=== PATIENT | female | born 1955 | race Caucasian/White ===

== ENCOUNTER 2016-11-24 11:12 | Emergency (ER) | payer OTHER ==
[~2016-11-24] VITALS: Ht 162.6 cm; Wt 88.6 kg
[2016-11-24 11:12] VITALS: BP 198/79; PULSE 104; RESP 26; O2SAT 97
[~2016-11-24 11:12] MED LIST: ATEN25TA PO; ATOR10TA66 PO; CHOL400C9 PO; FLUO10CA20 PO; HYDR12.5 PO; IBUP200C11 PO; OMEP40CA36 PO; RANI150C4 PO; VITA-219 PO; [UNRECOGNIZED DRUG - CODE] PO
[2016-11-24] MEDS ORDERED: Ondansetron 2 mg/mL 2 mL Inj IVPUSH PRN (11:25)
[2016-11-24] MEDS ORDERED: HYDROmorphone 0.5 mg/0.5 mL iSecure Syringe IVPUSH PRN (11:25)
--- NOTE | 2016-11-24 11:25 | ED.REPORT ---
HPI-Extremity Problem Lower Date of Service Nov 24, 2016 ED Provider: Jt Hester MD A 61 year old female presents to the ED via EMS with right ankle pain secondary to a injury the occurred just prior to arrival. Patient reportedly tripped over her dog's leash and her right foot was inverted at a backward angle. EMS manipulated and rotated the ankle to reduce the fracture. Patient is unable to bear weight and unable to ambulate. She denies any other injuries at this time including any head injuries. She denies any previous injuries to the right foot. Nursing Notes Stated Complaint: RIGHT ANKLE PAIN Chief Complaint: Multiple Trauma/Fall Nursing Notes Reviewed: Yes Allergies: Coded Allergies: No Known Drug Allergies (Verified Allergy, Unknown, 10/17/14) Scheduled Aspirin (Angella Chewable) 81 Mg Tab.chew 81 MG PO DAILY Atenolol (Atenolol) 25 Mg Tablet 25 MG PO DAILY Atorvastatin Calcium (Atorvastatin Calcium) 10 Mg Tablet 10 MG PO DAILY Cholecalciferol (Vitamin D3) (Vitamin D3) 400 Unit Capsule 400 UNIT PO DAILY Fluoxetine (Fluoxetine) 10 Mg Capsule 20 MG PO QAM Hydrochlorothiazide (Hydrochlorothiazide) 12.5 Mg Capsule 12.5 MG PO DAILY Omeprazole (Omeprazole) 40 Mg Capsule.dr 40 MG PO DAILYAC Ranitidine (Ranitidine) 150 Mg Capsule 150 MG PO BID Vitamin B Complex (B Complex) 1 Each Tablet 1 EACH PO DAILY Scheduled PRN Hydrocodone-Acetaminophen 5-325 mg (Hydrocodone-Acetaminophen 5-325 mg) 1 Each Tablet 1 TABLET PO Q4H PRN PRN For Pain Ibuprofen (Advil) 200 Mg Capsule 200 MG PO PRN PRN PRN For Pain General Time Seen by MD: 11:18 Chief Complaint Ankle injury right Hx Obtained From: Patient Arrived By: Ambulance Onset Occurred: Just prior to arrival Symptom Duration: Since onset Caused by: Accidental Location: : Ankle right Quality: Painful Severity: Current: Moderate Severity: Maximum: Moderate Associated with: Reports: Unable to bear weight, Unable to move joint, Unable to walk Pertinent Negative: Pt denies other symptoms Recent Healthcare: No recent doctor visit, No recent hospitalization Past Medical History Past Medical History Hypertension GERD Osteoarthritis Past Surgical History Left knee arthroscopy Smoking History Current Every Day Smoker Social History Other Social History: Good social support, Local resident Ambulatory Status Independent Review of Systems Musculoskeletal: Reports: Extremity pain (R foot), Joint pain (R ankle), Denies: Back pain, Neck pain Neurologic: Denies: Change LOC, Headache Complete sys rev & neg: except as marked. Physical Exam Initial Vital Signs Vital Signs (First) Date Time Temp Pulse Resp B/P Pulse Ox O2 Delivery O2 Flow Rate FiO2 11/24/16 11:12 36.6 104 26 198/79 97 Room Air Initial VS: Reviewed Head / Eyes: Atraumatic, Normocephalic, PERRL Neck: Supple, Non-tender, Full range of motion Skin: Warm, Dry, No cyanosis Neurologic: Alert, Oriented, Nonfocal Psychiatric: Mood/affect normal, Behavior normal, Normal thought content Lower Extremity / Pelvis / MS: Atraumatic, Inspection NL, Neurologic intact, Vascular intact LOWER EXTREMITIES: Good DP and PT pulses Ankle / Foot: Neurologic intact, Vascular intact Right Foot: Positive: Deformity present, ROM reduced, Swelling present..., Tenderness present... Respiratory / Chest: Atraumatic, Breath sounds NL, Breath sounds = bilat, No respiratory distress Cardiovascular: Heart rate NL, Regular rhythm, Heart sounds NL, No murmurs Interpretation & Diagnostics X-Ray Interpretation Xray Interpretation: IMPRESSION: Distal tibial and fibular fractures. Please see right ankle x-ray report for detail. Dictated by: Isidro Harper M.D. on 11/24/2016 at 12:07 X-Ray Ordered: Foot right Interpretation / Wet Read by: Interpret - Radiologist Xray Interpretation: IMPRESSION: 1. Distal fibular fracture above the ankle mortise. 2. Transverse fracture of the medial malleolus. 3. Widening of medial joint space at the tibiotalar joint. Dictated by: Isidro Harper M.D. on 11/24/2016 at 12:04 X-Ray Ordered: Ankle right Interpretation / Wet Read by: Interpret - Radiologist Procedures Splint Application - Fx Mgt Time: 13:28 Procedure Performed by: Supply Tech Definitive Fracture Care: Splint Post-Procedure / Complications: Cap refill normal, Post splint vascular nl, Post splint neuro nl, Condition improved, Tolerated procedure well, Patient stable Splint Post-Application Eval Extremity Condition: Cap refill < 2 sec, Distal sensation intact, Distal motor Intact, No compartment syndrome Re-Eval/Medical Decision Med Decision/Clinical Course 61-year-old female with right tibiotalar dislocation and medial and lateral malleoli fractures. Right lower extremity is neurovascularly intact. Reduced by medics in the field. Alignment is stable here. Discussed with orthopedics recommended splinting and follow-up with orthopedics in several days. Return precautions given if any worse or any neurovascular deficits or any new or worsening pain. She was discharged with crutches. I evaluated the patient is post-splint placement and it was neurovascularly intact. Re-Evaluation/Progress #1: Time of Eval: 12:02 Patient Status: Condition improved Re-Evaluation/Progress Note: Pt is informed of her X-ray results. Splint is placed. All questions about the treatment plan area addressed. She understands and agrees with the plan. Re-Evaluation/Progress #2: Time of Eval: 13:04 Re-Evaluation/Progress Note: Pt reports that the spint is painfully tight. Splint procedure is repeated. Consultation : Referral / Consult Name: Mathew Marcelo MD Consulted With: Orthopedic Call Returned at: 12:27 Shoder Filler: Will see patient, Will see in office, Agrees with eval, Agrees with plan Counseled Regarding: Diagnosis, Need for follow-up, When/why to return to ED Discharge & Departure Impression: Primary Impression: Fracture of distal end of tibia with fibula Encounter type: initial encounter Fracture type: closed Laterality: right Qualified Code: S82.301A - Unspecified fracture of lower end of right tibia, initial encounter for closed fracture Additional Impressions: Medial malleolar fracture Encounter type: initial encounter Fracture type: closed Fracture alignment : displaced Laterality: right Qualified Code: S82.51XA - Displaced fracture of medial malleolus of right tibia, initial encounter for closed fracture Lateral malleolar fracture Encounter type: initial encounter Fracture type: closed Fracture alignment : displaced Laterality: right Qualified Code: S82.61XA - Displaced fracture of lateral malleolus of right fibula, initial encounter for closed fracture Dislocation of right talus Encounter type: initial encounter Qualified Code: S93.04XA - Dislocation of right ankle joint, initial encounter Disposition: Home Discharge Condition All VS Reviewed: Yes Condition: Improved Patient Instructions: Ankle Dislocation (ED), Ankle Exercises (GEN), Ankle Fracture (ED), Crutch Instructions (ED) Additional Instructions: Thank you for trusting us with your care this morning. Your emergency department X-ray revealed a right ankle fracture. Keep the foot immobilized until you are able to follow up with the orthopedic surgeon. Please take [place] as directed for pain. Schedule a follow up appointment with the referred orthopedist (Dr. Marcelo) 2-3 days and schedule an appointment with your primary care physician in the next 2- 3 days for a recheck. Please return to the emergency department if you begin to develop any new or worsening conditions including any worsening pain, weakness, numbness or tingling in the foot. One of the medications you have been prescribed is a narcotic and may cause drowsiness. Please do not drink drive or use acetaminophen while on this medication. Referrals: Aury Lizarraga MD (PCP) Mathew Marcelo MD Attestation Portions of this note were transcribed by Zelda Lugo. I, Dr. Hetser personally performed the history, physical exam and medical decision-making; I reviewed and confirmed the accuracy of the information in the transcribed note. Signed by: Hugo Miller, 11/24/16 2407. copies to: Aury Lizarraga MD, Ben M MD Nov 24, 2016 11:25 ZELDA LUGO Nov 24, 2016 11:37
--- NOTE | 2016-11-24 12:09 | DRSVH ---
PROCEDURE: X-RAY RIGHT ANKLE, MINIMUM THREE VIEWS ([id number]) INDICATIONS: trauma TECHNIQUE: 3 views of the ankle were acquired. COMPARISON: [facility], CR, XR FOOT 3VW RT, 11/24/2016, 11:18. FINDINGS: Bones: There is a spiral fracture in the distal fibula above ankle mortise. There is a transverse fra cture involving the medial malleolus with anterior lateral displacement of the distal fracture fragme nt. There is widening of medial ankle joint space. Soft tissues: No tibiotalar joint effusion. Achilles tendon appears normal. IMPRESSION: 1. Distal fibular fracture above the ankle mortise. 2. Transverse fracture of the medial malleolus. 3. Widening of medial joint space at the tibiotalar joint. Dictated by: Isidro Harper M.D. on 11/24/2016 at 12:04 Approved by: Isidro Harper M.D. on 11/24/2016 at 12:07
--- NOTE | 2016-11-24 12:10 | DRSVH ---
PROCEDURE: X-RAY RIGHT FOOT COMPLETE, MINIMUM THREE VIEWS ([id number]) INDICATIONS: trauma TECHNIQUE: 3 views of the foot were acquired. COMPARISON: None. FINDINGS: Bones: Distal tibial and fibular fractures are better seen on ankle radiographs. No suspicious bony lesions. Soft tissues: No tibiotalar joint effusion. Achilles tendon appears normal. IMPRESSION: Distal tibial and fibular fractures. Please see right ankle x-ray report for detail. Dictated by: Isidro Harper M.D. on 11/24/2016 at 12:07 Approved by: Isidro Harper M.D. on 11/24/2016 at 12:08
[2016-11-24] MEDS ORDERED: HYDR-4003 PO (12:29)
[2016-11-24 13:41] VITALS: BP 150/82; PULSE 65; RESP 12; O2SAT 97
== END 2016-11-24 13:38 | disposition home or self-care (01) ==
LOC: SED 11:12
DX: S82.301A Unspecified fracture of lower end of right tibia, initial encounter for closed fracture (principal); S82.51XA Displaced fracture of medial malleolus of right tibia, initial encounter for closed fracture; S82.61XA Displaced fracture of lateral malleolus of right fibula, initial encounter for closed fracture; S93.04XA Dislocation of right ankle joint, initial encounter; W01.0XXA Fall on same level from slipping, tripping and stumbling without subsequent striking against object, initial encounter; Y92.9 Unspecified place or not applicable; Y93.89 Activity, other specified; Y99.8 Other external cause status; I10 Essential (primary) hypertension; K21.9 Gastro-esophageal reflux disease without esophagitis; F17.200 Nicotine dependence, unspecified, uncomplicated; Z79.82 Long term (current) use of aspirin
CPT/HCPCS: 29515; 73610; 73630; 96374; 96375; 99284; J1170; J2405

== ENCOUNTER 2016-11-29 09:28 | Day surgery (SDC) | payer OTHER ==
[~2016-11-29] VITALS: Ht 162.6 cm; Wt 88.1 kg
[2016-11-29] VITALS (11 sets, daily range): BP systolic 138–189; BP diastolic 67–95; PULSE 65–105; RESP 8–19; O2SAT 93–100
[~2016-11-29 09:28] MED LIST changes: +CeFAZolin 2 Gm/50 mL D5W IV Premix IV ONE; +HYDR-4003 PO
[2016-11-29] MEDS ORDERED: MetoCLOpramide 5 mg/mL 2 mL Inj ONE (09:29)
[2016-11-29] MEDS ORDERED: Propofol 10,000 mCg/mL 20 mL Inj ONE (09:29)
[2016-11-29] MEDS ORDERED: fentaNYL-PF 50 mCg/mL 2 mL Inj ONE (09:29)
[2016-11-29] MEDS ORDERED: Glycopyrrolate 0.2 MG/ML 1mL Inj ONE (09:29)
[2016-11-29] MEDS ORDERED: Phenylephrine 10,000 mCg/mL Inj ONE (09:29)
[2016-11-29] MEDS ORDERED: Rocuronium 10 mg/mL 5 mL Inj ONE (09:29)
[2016-11-29] MEDS ORDERED: Dexamethasone 4 mg/mL Inj ONE (09:29)
[2016-11-29] MEDS ORDERED: Neostigmine 1 mg/mL 10 mL Inj ONE (09:29)
[2016-11-29] MEDS ORDERED: HYDROmorphone 1 mg/mL Inj ONE (09:29)
[2016-11-29] MEDS ORDERED: Ondansetron 2 mg/mL 2 mL Inj ONE (09:29)
[2016-11-29] MEDS ORDERED: Lidocaine PF 1% 30 mL Inj ONE (09:29)
[2016-11-29] MEDS: Lactated Ringer's 1,000 ML IV SCH ×2 (09:42→12:06)
--- NOTE | 2016-11-29 10:42 | PCM.HPANE ---
Patient Data Surgeon Admitting Provider: Attending Provider:Mathew Marcelo MD Primary Care Physician:Aury Lizarraga MD Other Provider:Keren Ledezmaingham Anesthesia Reason for Visit Right Ankle Bimalleolar Fracture Ht/WT & BMI Height (Feet): 5 Height (Inches): 4.00 Weight (Kilograms): 88.1 Body Mass Index 33.00 Allergies Coded Allergies: No Known Drug Allergies (Verified Allergy, Unknown, 10/17/14) Past Anesthesia History Anesthesia History: Positive for:: Anesthesia Reactions (wakes up sick), Denies:: Abnormal Airway, Difficult Intubation, Fam Anesthesia Reaction, Fam Malignant Hypertherm, Malignant Hyperthermia Diabetes History Hx Diabetes?: No MRSA MRSA: No Medications Blood Thinner: Aspirin Last Dose Blood Thinner: Nov 26, 2016 Hypertension Medication: No Home Meds Incl Beta Keysha: Yes (Atenolol 25mg) Date Beta Keysha Taken: Nov 28, 2016 Time Beta Keysha Taken: 1100 Active Scripts Hydrocodone-Acetaminophen 5-325 mg 1 Each Tablet1 Tablet PO Q4H PRN For Pain # 14 TABLET Prov:Jt Hester MD 11/24/16 Reported Medications Ibuprofen (Advil)200 Mg Gnohwbo089 Mg PO PRN PRN For Pain 10/18/14 Vitamin B Complex (B Complex)1 Each Tablet1 Each PO DAILY 10/18/14 Aspirin (Angella Chewable)81 Mg Tab.chew81 Mg PO DAILY 09/28/13 Atenolol 25 Mg Flccpj11 Mg PO DAILY #30 TABLET Ref 0 09/28/13 Atorvastatin Calcium 10 Mg Sbmpry18 Mg PO DAILY 30 Days Ref 0 09/28/13 Fluoxetine 10 Mg Qnqabhj77 Mg PO QAM 30 Days Ref 0 09/28/13 Hydrochlorothiazide 12.5 Mg Dxszatq01.5 Mg PO DAILY 30 Days Ref 0 09/28/13 Ranitidine 150 Mg Dlckfxh159 Mg PO BID 30 Days Ref 0 09/28/13 Cholecalciferol (Vitamin D3) (Vitamin D3)400 Unit Djkhdns667 Unit PO DAILY 30 Days 09/28/13 Omeprazole 40 Mg Capsule.dr40 Mg PO DAILYAC 30 Days Ref 0 09/28/13 History History of ENT Problems?: Yes HEENT History: Denies:: Abnormal Airway Cataracts Difficult Intubation Dysphagia Glaucoma Hearing Problem Sinus Problem TMJ Denture Type: None Teeth Condition: Within Normal Limits Hx of Heart Problems?: Yes Cardiovascular History: Positive for:: Hypertension Denies:: AICD Abdominal Aortic Aneurism Atrial Fibrillation Cardiac Surgery Chest Pain Congestive Heart Failure Coronary Artery Disease Heart Murmur Irregular Heartbeat Pacemaker Peripheral Vascular Rheumatic Fever Thrombophlebitis Valvular Heart Disease Hx of Respiratory Problem?: No Respiratory History: Denies:: Asthma COPD Cough Hemoptysis Pneumonia Tuberculosis Use of C-PAP Machine Hx Neurologic Problems?: No Neurological History: Denies:: Alzheimer's Disease CVA Dementia Dizziness Headaches Multiple Sclerosis Parkinson's Disease Seizures TIA Hx of GI Problems?: No Hx of Problems?: No Female Hx: Denies:: Currently Skin History: Denies:: History Skin Disorders? 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 Denies:: Blood Transfuse Reaction Hx Diabetes: No Hx Alcohol Use: NoHx Substance Use: Yes (Smoke Marijuana) Smoking Status: Current Every Day Smoker Have You Smoked inLast 12 mo: No Stop/Bang Treated for Sleep Apnea?: No Do You Have a CPAP Machine?: No S-Snoring: Do You Snore Loudly: No T-Tired: feel tired, fatigued: No O-Obsered: Observed not breath: No P-Blood Pressure: treated: Yes B- Body Mass Index > 35 kg/m2: No A- Age over 50: Yes N- Neck Large Circumference: No G- Gender Male: No KRYSTIN Total Score: 2 KRYSTIN Risk Assessment: Low Risk, <3 Yes Risk Assessment Category Category 1A: Patient has history of documented sleep apnea, and HAS NOT received any narcotic, sedative or anesthesia administration during this stay. Category 1B: Patient has history of documented sleep apnea, and HAS received any narcotic , sedative or anesthesia administration during this stay Category 2: Patient has SUSPECTED Obstructive Sleep Apnea, and HAS received any narcotic , sedative or anesthesia administration during this stay. Category 3: Patient has SUSPECTED Obstructive Sleep Apnea and HAS NOT received narcotic, sedative or anesthesia administration during this stay. Category 4: Outpatient in Procedural Areas with known sleep apnea or who screen positive for High Risk via the STOP/BANG questionnaire. Exam Exam Vital Signs Vital Signs Date Time Temp Pulse Resp B/P Pulse Ox O2 Delivery O2 Flow Rate FiO2 11/29/16 10:08 36.8 68 18 159/80 98 Room Air General Appearance: Oriented X3 HEENT/AIRWAY: MP 2 Lungs: Normal Air Movement Heart: Regular Rate/Rhythm Meds/Labs/Diagnostics Admission Meds Current Medications Lactated Ringer's (Lr) 1,000 ml @ 120 mls/hr Q8H20M IV Last administered on t 09:42; Start 11/29/16 at 05:00; Stop 11/29/16 at 13:19 Plan Impression Patient chart reviewed, patient interviewed and anesthestic plan with risks, benefits, and alternatives discussed, and informed consent obtained. ASA Physical Status: ASA2 Mod Systemic Disease Anesthetic Plan: GA, Regional Block Bene/Risks/Altern/Consents: Yes HP Complete Prior to Induction: Yes Yao Lion MD Nov 29, 2016 10:42
[2016-11-29] MEDS ORDERED: Lactated Ringer's 1,000 ML IV SCH (10:54)
[2016-11-29] MEDS ORDERED: Lactated Ringer's 500 ML IV PRN (10:54)
[2016-11-29] MEDS ORDERED: Ondansetron 2 mg/mL 2 mL Inj IVPUSH PRN (10:55)
[2016-11-29] MEDS ORDERED: Labetalol 5 mg/mL 4 mL Inj IV PRN (10:55)
[2016-11-29] MEDS ORDERED: Phenylephrine 10,000 mCg/mL Inj IVPUSH PRN (10:55)
[2016-11-29] MEDS ORDERED: hydrALAZINE 20 mg/mL Inj IVPUSH PRN (10:55)
[2016-11-29] MEDS ORDERED: HYDROmorphone 1 mg/mL Inj IVPUSH PRN (10:55)
[2016-11-29] MEDS ORDERED: fentaNYL-PF 50 mCg/mL 2 mL Inj IVPUSH PRN (10:55)
[2016-11-29] MEDS ORDERED: MetoCLOpramide 5 mg/mL 2 mL Inj IVPUSH PRN (10:55)
[2016-11-29] MEDS ORDERED: Atropine 0.4 mg/mL Inj IVPUSH PRN (10:55)
[2016-11-29] MEDS ORDERED: EPHEDrine Sulfate 50 mg/mL Inj IVPUSH PRN (10:55)
[2016-11-29] MEDS ORDERED: Dexamethasone 4 mg/mL Inj IVPUSH PRN (10:55)
[2016-11-29] MEDS ORDERED: Bupivacaine-MPF 0.5% 30 mL Inj INFILTRATE ONE (14:49)
[2016-11-29] MEDS ORDERED: hydrOXYzine Pamoate 25 mg Capsule PO PRN (15:30)
[2016-11-29] MEDS ORDERED: oxyCODONE-Acetamin 10-325 mg Tablet PO PRN (15:45)
--- NOTE | 2016-11-29 17:16 | PCM.ANEP1 ---
Post Anesthesia PACU Phase 1 Assessment Date of Service: Nov 29, 2016 Vital Signs Vital Signs Date Time Temp Pulse Resp B/P Pulse Ox O2 Delivery O2 Flow Rate FiO2 11/29/16 16:25 36.7 89 16 148/70 93 Room Air 11/29/16 16:15 94 19 158/72 94 Room Air 11/29/16 16:10 37 89 8 167/87 94 Room Air 11/29/16 16:05 96 17 158/73 94 Room Air 11/29/16 16:00 37.3 105 16 189/95 96 Room Air 11/29/16 15:50 87 11 178/82 98 Simple Mask 8 11/29/16 15:45 36.8 70 10 160/81 98 Simple Mask 8 11/29/16 15:40 65 12 157/71 98 Simple Mask 8 11/29/16 15:35 67 14 138/67 98 Simple Mask 8 11/29/16 15:31 36.7 76 13 148/91 100 Simple Mask 8 11/29/16 10:08 36.8 68 18 159/80 98 Room Air Anesthetic Administered: GA, Regional Block Level of Alertness: Sleepy, easy to arouse BANG's with Equal Strength: Yes Pain: No Nausea or Vomiting: No CV Function & Hydration Stable: Yes Airway Device: Oxygen Delivery: Simple Mask Lungs: Normal Air Movement PACU Phase 2 Assessment Complications: No Follow up Care: N/A Patient Instructions Provided: N/A Jake Guzman MD Nov 29, 2016 17:16
--- NOTE | 2016-11-30 17:55 | OP ---
[address] [address] OPERATIVE REPORT PATIENT: CARLOS MILLER : 1955 MR#: [id number] ADMIT: 11/29/2016 JOB ID: [id number] DATE OF SURGERY: 11/29/2016 SURGEON: Mathew Marcelo MD BIOMETRICS CONSULTANT: Chau Rios PA-C (Chau Rios was integral portion of procedure, helping maintain alignment and retraction for the procedure). PREOPERATIVE DIAGNOSIS(ES): 1. Right ankle bimalleolar fracture. ICD 10 code S82.841A 2. Right ankle syndesmosis injury. ICD 10 code S93.439A. POSTOPERATIVE DIAGNOSIS(ES): 1. Right ankle bimalleolar fracture. ICD 10 code S82.841A 2. Right ankle syndesmosis injury. ICD 10 code S93.439A. PROCEDURE: 1. Right ankle repair, right ankle bimalleolar fracture. CPT code 63055. 2. Right ankle syndesmosis repair. CPT code 2729. ANESTHESIA: The patient also had a regional block for postoperative analgesia for the right leg. This was performed by Anesthesia. ESTIMATED BLOOD LOSS: 20 mL. DRAINS: None. COMPLICATIONS: None. SPONGE AND NEEDLE COUNT: Correct. INDICATIONS: This is a 61-year-old female who tripped while walking her dog, sustaining a right ankle bimalleolar fracture and syndesmosis injury. Fracture was of the lateral malleolus and medial malleolus and no fracture of the posterior malleolus. PROCEDURE IN DETAIL: Under adequate general anesthetic, a well-padded tourniquet was applied to the right thigh. Right leg was prepped and draped in sterile fashion. After appropriate time-out was called, the leg was elevated, exsanguinated, tourniquet inflated to 300 mmHg. Lateral incision was fashioned over the lateral malleolus taking it down to the bone, taking care to protect the superficial peroneal nerve. The periosteum around the edge of the fracture site was released. The fracture was reduced and held with a bone-holding clamp. I then transfixed the fracture with interfragmentary 2.7 mm screw in a lag fashion. A fibular locking plate was then temporarily transfixed to the fibula with K-wires. Once position was confirmed to be in good position, proximal nonlocking 2.7 mm screw was drilled and filled to compress the plate to the bone. A central nonlocking screw in the distal portion of the plate was drilled and filled with a 2.7 mm nonlocking screw. Additional distal locking screws were drilled and filled in the distal portion of the fibula. Additional nonlocking screws were drilled and filled in the proximal portion of the plate where she had good cortical bone. One additional nonlocking screw was placed in the oblong hole utilizing a 3.5 mm nonlocking screw. One of the oblong holes distally was left open in order to place a syndesmosis screw. Prior to placing the syndesmosis screw, attention was next turned to the medial malleolus. Please note, I did inspect the lateral portion of the talus and portion of the joint before transfixing the lateral malleolar fracture and there did not appear to be any large osteochondral contusions. Incision was fashioned over the medial malleolus, taking care to protect the saphenous vein and nerve. The small horizontal fracture of the medial malleolus was identified. A small drill hole was placed in the proximal portion of the fracture in order to place a self-retaining bone clamp and obtain reduction. The medial malleolus was then transfixed with two cannulated 4.0 screws. Image intensification confirmed good position of the guidepins before the screws were placed. Bone clamp was subsequently removed. Attention was next turned back to the syndesmosis. The remaining oblong hole in the distal portion of the plate was then drilled and filled with nonlocking 3.5 mm syndesmosis screw holding the foot in dorsiflexion. Image intensification confirmed good position of the hardware in the AP and lateral and mortise views. The wounds were irrigated with saline. A small amount of the periosteum and soft tissue was closed medially with some interrupted sutures of 3-0 Vicryl. The subcutaneous layer was closed with interrupted sutures of 3-0 Monocryl. Attention was turned to the lateral malleolar wound. The lateral malleolar wound was irrigated and the soft tissue over the plate was closed with interrupted sutures of 2-0 Vicryl. Subcutaneous layer was closed with some interrupted sutures of 4-0 Monocryl and running subcuticular suture of 4-0 Monocryl. The ends of the sutures were brought out through the skin and Steri-Stripped to the skin. Mastisol and Steri-Strips were placed over the remaining portion of the wound. Those sutures will need to be cut flush with the skin upon return to the clinic in two weeks. Xeroform dry sterile bulky dressings were applied. The patient was placed in a well-padded short leg fiberglass splint. The patient was taken to recovery room in stable condition. Sponge and needle count correct. No complications. PLAN: The patient will be seen back in the office in two weeks for Steri-Strip removal and clipping the Monocryl sutures flush with the skin upon return. The patient is to remain strict nonweightbearing for about six weeks. She will require syndesmosis screw removal in the future. Patient should be changed to a short leg fiberglass cast nonweightbearing when she returns to the clinic for suture removal. I will anticipate changing her to a short-leg walking boot probably in about six weeks. I anticipate she will need a cast change during that interim.
== END 2016-11-29 23:59 | disposition home or self-care (01) ==
LOC: SAS 09:28
PROVIDERS: ATTEND Orthopaedic Surgery
DX: S82.841A Displaced bimalleolar fracture of right lower leg, initial encounter for closed fracture (principal); S93.431A Sprain of tibiofibular ligament of right ankle, initial encounter; W01.0XXA Fall on same level from slipping, tripping and stumbling without subsequent striking against object, initial encounter; Y93.K1 Activity, walking an animal; I10 Essential (primary) hypertension; E78.5 Hyperlipidemia, unspecified; K21.9 Gastro-esophageal reflux disease without esophagitis; F17.210 Nicotine dependence, cigarettes, uncomplicated; Z79.82 Long term (current) use of aspirin
CPT/HCPCS: 27814; 27829; 76001; C1713; J0690; J1100; J1170; J2250; J2370; J2405; J2710; J2765; J3010; J7120

== ENCOUNTER → 2017-02-26 | Day surgery (SDC) | payer OTHER ==
[2017-02-26] VITALS (11 sets, daily range): BP systolic 102–156; BP diastolic 56–97; PULSE 56–75; RESP 9–17; O2SAT 94–100
[~2017-02-26] VITALS: Ht 160 cm; Wt 89.2 kg
[~2017-02-26] MED LIST changes: +ASPI81TA3 PO; -ATOR10TA66 PO; +ATRV10T PO; +Albuterol-Ipratropium 3 mL Inhalation Solution NEB PRN; +Bupivacaine-MPF 0.5% 30 mL Inj INFILTRATE ONE; +CHOL100045 PO; -CHOL400C9 PO; +CLOB15CR2 TP; +CeFAZolin 2 Gm/50 mL D5W Duplex Bag IV ONE; -CeFAZolin 2 Gm/50 mL D5W IV Premix IV ONE; +CeFAZolin Inj 2 GM in IV Premix 1 EACH IV ONE; +Dexamethasone 4 mg/mL Inj IVPUSH PRN; +Dexamethasone 4 mg/mL Inj ONE; +EPHEDrine Sulfate 50 mg/mL Inj IVPUSH PRN; -FLUO10CA20 PO; +FLUO20CA25 PO; -HYDR-4003 PO; -HYDR12.5 PO; +HYDROcodone-APAP 7.5-325 mg Tablet PO PRN; +HYDROmorphone 1 mg/mL Inj IVPUSH PRN; -IBUP200C11 PO; +Lactated Ringer's 1,000 ML IV SCH; +Lactated Ringer's 500 ML IV PRN; +MetoCLOpramide 5 mg/mL 2 mL Inj IVPUSH PRN; +Ondansetron 2 mg/mL 2 mL Inj IVPUSH PRN; +Ondansetron 2 mg/mL 2 mL Inj ONE; +Phenylephrine 10,000 mCg/mL Inj IVPUSH PRN; +Propofol 10,000 mCg/mL 20 mL Inj ONE; +VIT1TABL81 PO; -VITA-219 PO; -[UNRECOGNIZED DRUG - CODE] PO; +fentaNYL-PF 50 mCg/mL 2 mL Inj IVPUSH PRN; +fentaNYL-PF 50 mCg/mL 2 mL Inj ONE
--- NOTE | 2017-02-26 09:19 | PCM.HPANE ---
Patient Data Surgeon Admitting Provider: Attending Provider:Mathew Marcelo MD Primary Care Physician:Aury Lizarraga MD Other Provider:Nikko Ledezma Anesthesia Reason for Visit Right Ankle Bimalleolar Fracture Ht/WT & BMI Height (Feet): 5 Height (Inches): 3 Weight (Kilograms): 81 Body Mass Index 31.00 Allergies Coded Allergies: No Known Drug Allergies (Verified Allergy, Unknown, 02/19/17) Past Anesthesia History Anesthesia History: Positive for:: Anesthesia Reactions (wakes up vomiting), Denies:: Abnormal Airway, Difficult Intubation, Fam Anesthesia Reaction, Fam Malignant Hypertherm, Malignant Hyperthermia Diabetes History Hx Diabetes?: No MRSA MRSA: No Medications Blood Thinner: Aspirin Last Dose Blood Thinner: Feb 14, 2017 Hypertension Medication: Yes (Atenolol) Home Meds Incl Beta Keysha: Yes Date Beta Keysha Taken: Feb 26, 2017 Time Beta Keysha Taken: 08:30 Reported Medications Cholecalciferol (Vitamin D3) (Vitamin D)1,000 Unit Capsule1,000 Unit PO DAILY # 1 BOTTLE Ref 0 02/19/17 Ranitidine 150 Mg Gmspjrv218 Mg PO BID Ref 0 02/19/17 Omeprazole 40 Mg Capsule.dr40 Mg PO DAILY Ref 0 02/19/17 Fluoxetine 20 Mg Nrxlhno84 Mg PO DAILY Ref 0 02/19/17 Clobetasol Propionate 15 Gm Cream..g.15 Gm TP DIRECTED PRN rash 02/19/17 Vit B1 Mn/B2/B3/B5/B6/B12/C/FA (B Complex with Vitamin C Tab)1 Each Tablet1 Each PO DAILY 02/19/17 Atorvastatin (Lipitor)10 Mg Tab10 Mg PO DAILY Ref 0 02/19/17 Atenolol 25 Mg Zbmfby92 Mg PO DAILY #30 TABLET Ref 0 02/19/17 Aspirin Chew 81 Mg Chew81 Mg PO DAILY Ref 0 02/19/17 Discontinued Reported Medications Ibuprofen (Advil)200 Mg Tpzthsb300 Mg PO PRN PRN For Pain 10/18/14 Vitamin B Complex (B Complex)1 Each Tablet1 Each PO DAILY 10/18/14 Aspirin (Angella Chewable)81 Mg Tab.chew81 Mg PO DAILY 09/28/13 Atenolol 25 Mg Qqlibz65 Mg PO DAILY #30 TABLET Ref 0 09/28/13 Atorvastatin Calcium 10 Mg Icmfza88 Mg PO DAILY 30 Days Ref 0 09/28/13 Fluoxetine 10 Mg Ngepthl99 Mg PO QAM 30 Days Ref 0 09/28/13 Hydrochlorothiazide 12.5 Mg Lgnpbtu73.5 Mg PO DAILY 30 Days Ref 0 09/28/13 Ranitidine 150 Mg Imhyocc671 Mg PO BID 30 Days Ref 0 09/28/13 Cholecalciferol (Vitamin D3) (Vitamin D3)400 Unit Awkbxlv739 Unit PO DAILY 30 Days 09/28/13 Omeprazole 40 Mg Capsule.dr40 Mg PO DAILYAC 30 Days Ref 0 09/28/13 Discontinued Scripts Hydrocodone-Acetaminophen 5-325 mg 1 Each Tablet1 Tablet PO Q4H PRN For Pain # 14 TABLET Prov:Jt Hester MD 11/24/16 History History of ENT Problems?: Yes HEENT History: Denies:: Abnormal Airway Cataracts Difficult Intubation Dysphagia Glaucoma Hearing Problem Sinus Problem TMJ Denture Type: None Teeth Condition: Within Normal Limits Hx of Heart Problems?: Yes Cardiovascular History: Positive for:: Hypertension Denies:: AICD Abdominal Aortic Aneurism Atrial Fibrillation Cardiac Surgery Chest Pain Congestive Heart Failure Heart Murmur Irregular Heartbeat Pacemaker Rheumatic Fever Thrombophlebitis Valvular Heart Disease Hx of Respiratory Problem?: No Respiratory History: Denies:: Asthma COPD Cough Hemoptysis Pneumonia Pulmonary Embolism Tuberculosis Use of C-PAP Machine Use of Inhalers / NEBS Hx Neurologic Problems?: No Neurological History: Denies:: Alzheimer's Disease CVA Dementia Dizziness Headaches Multiple Sclerosis Parkinson's Disease Seizures TIA Hx of GI Problems?: No Hx of Problems?: No Female Hx: Denies:: Currently Problems with Breasts? Skin History: Denies:: History Skin Disorders? 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 Denies:: Blood Transfuse Reaction Blood Transfusions Hx Diabetes: No Hx Alcohol Use: NoHx Substance Use: Yes (Smoke Marijuana) Smoking Status: Current Every Day Smoker Have You Smoked inLast 12 mo: No Stop/Bang S-Snoring: Do You Snore Loudly: No T-Tired: feel tired, fatigued: No O-Obsered: Observed not breath: No P-Blood Pressure: treated: Yes B- Body Mass Index > 35 kg/m2: No A- Age over 50: Yes N- Neck Large Circumference: No G- Gender Male: No KRYSTIN Total Score: 2 KRYSTIN Risk Assessment: Low Risk, <3 Yes Risk Assessment Category Category 1A: Patient has history of documented sleep apnea, and HAS NOT received any narcotic, sedative or anesthesia administration during this stay. Category 1B: Patient has history of documented sleep apnea, and HAS received any narcotic , sedative or anesthesia administration during this stay Category 2: Patient has SUSPECTED Obstructive Sleep Apnea, and HAS received any narcotic , sedative or anesthesia administration during this stay. Category 3: Patient has SUSPECTED Obstructive Sleep Apnea and HAS NOT received narcotic, sedative or anesthesia administration during this stay. Category 4: Outpatient in Procedural Areas with known sleep apnea or who screen positive for High Risk via the STOP/BANG questionnaire. Exam Exam General Appearance: Alert, Oriented X3, Cooperative, No Acute Distress HEENT/AIRWAY: MP 1, Neck Movement (FROM), Mouth Opening (3FB) Lungs: Normal Air Movement Heart: Exam Unremarkable Plan Impression Patient chart reviewed, patient interviewed and anesthestic plan with risks, benefits, and alternatives discussed, and informed consent obtained. NPO per Anesth. Guidelines: Yes ASA Physical Status: ASA2 Mod Systemic Disease Anesthetic Plan: GA Bene/Risks/Altern/Consents: Yes HP Complete Prior to Induction: Yes Salvatore Brannon MD Feb 26, 2017 09:19
[2017-02-26] MEDS: Lactated Ringer's 1,000 ML IV SCH ×2 (10:36→13:00)
--- NOTE | 2017-02-26 14:00 | PCM.ANEP1 ---
Post Anesthesia PACU Phase 1 Assessment Vital Signs Vital Signs Date Time Temp Pulse Resp B/P Pulse Ox O2 Delivery O2 Flow Rate FiO2 02/26/17 10:50 35.9 60 17 143/97 97 Room Air Anesthetic Administered: GA Level of Alertness: Sleepy, easy to arouse BANG's with Equal Strength: Yes Pain: No Nausea or Vomiting: No CV Function & Hydration Stable: Yes Airway Device: Oxygen Delivery: Room Air Lungs: Normal Air Movement PACU Phase 2 Assessment Complications: No Follow up Care: No Patient Instructions Provided: N/A Salvatore Brannon MD Feb 26, 2017 14:00
--- NOTE | 2017-02-26 15:05 | OP ---
[address] [address] OPERATIVE REPORT PATIENT: CARLOS MILLER : 1955 MR#: [id number] ADMIT: 02/26/2017 JOB ID: [id number] DATE OF SURGERY: 02/26/2017 PREOPERATIVE DIAGNOSIS(ES): 1. Healed right ankle syndesmosis injury with retained screw (ICD-10 codes S93.431D and Z98.890). 2. Healed right ankle bimalleolar fracture (ICD-10 code 882.841D). POSTOPERATIVE DIAGNOSIS(ES): 1. Healed right ankle syndesmosis injury with retained screw (ICD-10 codes S93.431D and Z98.890). 2. Healed right ankle bimalleolar fracture (ICD-10 code 882.841D). PROCEDURE: Removal of retained syndesmosis screw, right ankle, buried screw (CPT code 76152). SURGEON: Mathew Marcelo MD. ANESTHESIA: General. ESTIMATED BLOOD LOSS: 1 mL. DRAINS: None. COMPLICATIONS: None. SPONGE AND NEEDLE COUNT: Correct. INDICATIONS: This is a 61-year-old female with a healed and remodeling right ankle bimalleolar fracture and syndesmosis injury. The patient has a retained syndesmosis screw. PROCEDURE IN DETAIL: Under adequate general anesthetic, a well-padded tourniquet was applied to the right thigh. Right leg was prepped and draped in sterile fashion. The leg was elevated, tourniquet inflated to 250 mmHg. A small incision was fashioned over the lateral aspect of the ankle directly over the syndesmosis screw. The screw head was easily identified and removed without difficulty. Image intensification confirmed that the screw was removed. It was not sent to Pathology. The wound was infiltrated with 0.5% plain Marcaine. Tourniquet released. Minimal hemostasis required. Subcutaneous tissue was closed with a few interrupted sutures of 4-0 Monocryl and skin reapproximated with a few horizontal mattress sutures of 4-0 nylon. Xeroform and a dry sterile dressing were applied. The patient was taken to recovery room in stable condition. Sponge and needle count correct. No complications. PLAN: The patient will be seen back in the office in two weeks with suture removal. She may weightbear as tolerated in the boot. She should protect that ankle with the boot probably for a total of additional four weeks while the screw hole fills in. She may do some ankle range of motion exercises and also begin some strengthening exercises after a followup appointment in two weeks. I will see her back at the six week postoperative time frame. It will take about six weeks for the screw hole to fill in. The patient was discharged to home on hydrocodone 10/325, as well as Keflex. cc: [facility] cc: Janak Mena
--- NOTE | 2017-02-26 15:08 | DRSVH ---
PROCEDURE: X-RAY RIGHT ANKLE, MINIMUM THREE VIEWS ([id number]) INDICATIONS: post op screw removal TECHNIQUE: 3 views of the ankle were acquired. COMPARISON: [facility], CR, XR ANKLE 3VW RT, 01/13/2017, 9:18. FINDINGS: Bones: There has been interval removal of a fixation screw traversing the distal tibiofibular syndes mosis. Alignment appears unchanged. Postsurgical changes are redemonstrated status post prior ORIF with lateral screw plate fixation of the distal fibula and screw fixation through the medial malleolu s. No acute fractures. Surgical hardware appears intact. Soft tissues: There is persistent periarticular soft tissue swelling. IMPRESSION: 1. Interval removal of syndesmotic fixation screw without definite change in alignment. Dictated by: Martinez Shelton M.D. on 02/26/2017 at 15:03 Approved by: Martinez Shelton M.D. on 02/26/2017 at 15:06
== END | disposition home or self-care (01) ==
LOC: SAS 10:27
PROVIDERS: ATTEND Orthopaedic Surgery
DX: S82.841D Displaced bimalleolar fracture of right lower leg, subsequent encounter for closed fracture with routine healing (principal); S93.431D Sprain of tibiofibular ligament of right ankle, subsequent encounter; I10 Essential (primary) hypertension; K21.9 Gastro-esophageal reflux disease without esophagitis; E78.5 Hyperlipidemia, unspecified; Z87.891 Personal history of nicotine dependence
CPT/HCPCS: 20680; 73610; J0690; J1100; J1885; J2250; J2405; J2704; J3010; J7120